=== PATIENT | male | born 1980 | race African-American/Black ===

== ENCOUNTER 2017-10-06 00:13 | Emergency (ER) | payer MEDICAID ==
[~2017-10-06] VITALS: Ht 175.3 cm; Wt 81.0 kg
[2017-10-06] MEDS ORDERED: SODIUM CHLORIDE 0.9% 1,000 ML IV ONE (00:35)
[2017-10-06] MEDS ORDERED: MORPHINE SULFATE 4 MG/ML CPJ (NOT FOR IM USE) IV ONE ×2 (00:45→02:45)
[2017-10-06] MEDS ORDERED: TETANUS, DIPHTHERIA, PERTUSSIS VAC/PF 0.5ML (>7YR OLD) IM ONE (00:45)
[2017-10-06] MEDS ORDERED: ONDANSETRON HCL 4MG/2ML VIAL IV ONE (00:45)
[2017-10-06] MEDS ORDERED: ONDANSETRON 4MG ODT PO ONE (00:45)
[2017-10-06 00:57] LABS: HEMATOCRIT. 42.6 % (42.0-52.0); HEMOGLOBIN. 13.5 g/dL (14.0-18.0); MEAN CORPUSCULAR HEMOGLOBIN 23.7 pg (28.0-32.0); MEAN CORPUSCULAR VOLUME 74.7 fL (80.0-94.0); MEAN PLATELET VOLUME 7.3 fl (7.4-10.4); PLATELET 300 x1000/uL (130-400); RED CELL DISTRIBUTION WIDTH 15.5 % (11.6-14.6)
[2017-10-06 01:03] LABS: CHLORIDE 107 mEq/L (98-107)
[2017-10-06 01:04] LABS: INR 1.1; PROTHROMBIN TIME 10.8 sec (9.1-11.1)
[2017-10-06] MEDS ORDERED: CEFAZOLIN 1000MG PREMIX 50 ML IV ONE (02:15)
[2017-10-06 02:40] LABS: PLATELET ESTIMATE NORMAL
[2017-10-06 04:03] VITALS: BP 124/85
== END 2017-10-06 04:43 | disposition short-term general hospital (02) ==
LOC: ER 00:13
DX: S92.342B Displaced fracture of fourth metatarsal bone, left foot, initial encounter for open fracture (principal); F12.10 Cannabis abuse, uncomplicated; F17.200 Nicotine dependence, unspecified, uncomplicated; W33.01XA Accidental discharge of shotgun, initial encounter; Y93.89 Activity, other specified; Y92.89 Other specified places as the place of occurrence of the external cause; Y99.8 Other external cause status
CPT/HCPCS: 29515; 36415; 73610; 73630; 80053; 85025; 85610; 85730; 86850; 86900; 86901; 90471; 90715; 96365; 96375; 96376; 99285; J0690; J2270; J2405; J7030; Z7610

== ENCOUNTER 2017-10-14 14:20 | Emergency (ER) | payer MEDICAID ==
[~2017-10-14] VITALS: Ht 175.3 cm; Wt 79.0 kg
[2017-10-14 14:39] VITALS: BP 131/80
== END 2017-10-14 16:45 | disposition left against medical advice (07) ==
LOC: ER 14:20
DX: Z48.00 Encounter for change or removal of nonsurgical wound dressing (principal)
CPT/HCPCS: 99281

== ENCOUNTER 2020-11-19 09:49 | Emergency (ER) | payer MEDICAID ==
[~2020-11-19] VITALS: Ht 175.3 cm; Wt 79.0 kg
[2020-11-19] MEDS ORDERED: VISCOUS LIDOCAINE 2% 15 ML UDC MM STA (10:15)
[2020-11-19] MEDS ORDERED: DEXAMETHASONE 4MG TABLET PO ONE (10:15)
[2020-11-19] MEDS ORDERED: KETOROLAC 30MG/ML VIAL IM ONE (10:15)
[2020-11-19] MEDS ORDERED: LIDOCAINE HCL 1% 20ML VIAL (Pyxis) INJ INFIL ONE (11:15)
[2020-11-19] MEDS ORDERED: LIDOCAINE HCL 2% JELLY 5ML MM ONE (12:00)
[2020-11-19] MEDS ORDERED: CLINDAMYCIN HCL 150MG CAPSULE PO SCH (12:00)
[2020-11-19] MEDS ORDERED: CLIN300C12 MT (13:13)
[2020-11-19 13:24] VITALS: BP 128/74
== END 2020-11-19 13:24 | disposition home or self-care (01) ==
LOC: ER 10:00
DX: J36 Peritonsillar abscess (principal)
CPT/HCPCS: 96372; 99283; J1885; J3490; J8540